=== PATIENT | male | born 1985 | race Caucasian/White ===

== ENCOUNTER 2022-05-30 11:37 | Emergency (ER) | payer MEDICAID ==
[2022-05-30] MEDS ORDERED: traMADol 50 MG Tab PO STA (12:00)
== END 2022-05-30 13:36 | disposition home or self-care (01) ==
LOC: FB.ED 11:37
DX: S20.212A Contusion of left front wall of thorax, initial encounter (principal); W01.0XXA Fall on same level from slipping, tripping and stumbling without subsequent striking against object, initial encounter
CPT/HCPCS: 71101; 99283; A9270

== ENCOUNTER 2024-05-21 13:14 | Emergency (ER) | payer BC ==
[2024-05-21] MEDS ORDERED: Cephalexin 500 MG Cap PO ONE (13:15)
[2024-05-21] MEDS: Ketorolac 30 MG/ML SDV IM ONE (14:21)
[2024-05-21] MEDS: cefTRIAXone 1 GM Vial IM ONE (14:22)
[2024-05-21] MEDS: Lidocaine 2% Viscous Solution 15 ML UD PO ONE (14:22)
== END 2024-05-21 15:30 | disposition home or self-care (01) ==
LOC: FB.ED 13:14
DX: S02.5XXB Fracture of tooth (traumatic), initial encounter for open fracture (principal); K04.7 Periapical abscess without sinus; F17.210 Nicotine dependence, cigarettes, uncomplicated; Z79.899 Other long term (current) drug therapy; X58.XXXA Exposure to other specified factors, initial encounter
CPT/HCPCS: 96372; 99282; A9270; J0696; J1885; 99283

== ENCOUNTER 2024-12-30 10:49 | Emergency (ER) | payer BC ==
[2024-12-30] MEDS: Ketorolac 30 MG/ML SDV IVPUSH ONE (11:07)
[2024-12-30 11:09] LABS: BASOPHILS ABSOLUTE AUTO 0.1 x10-3/uL (0.0-0.3); BASOPHILS PERCENT AUTO 0.7 % (0.3-3.8); EOSINOPHILS ABSOLUTE AUTO 0.2 x10-3/uL (0.0-0.6); EOSINOPHILS PERCENT AUTO 2.0 % (0.1-6.8); LYMPHOCYTES ABSOLUTE AUTO 3.1 x10-3/uL (0.5-4.5); LYMPHOCYTES PERCENT AUTO 34.3 % (15.8-45.3); MEAN PLATELET VOLUME 7.0 fL (6.7-11.0); MONOCYTES ABSOLUTE AUTO 0.7 x10-3/uL (0.0-1.2); MONOCYTES PERCENT AUTO 7.3 % (5.5-15.2); NEUTROPHILS ABSOLUTE AUTO 5.1 x10-3/uL (1.7-6.9); NEUTROPHILS PERCENT AUTO 55.7 % (40.3-71.8); PLATELET COUNT,PLT 435 x10(3)uL (117-477); RED BLOOD CELL COUNT 5.27 x10(6)uL (3.90-5.90); RED CELL DISTRIBUTION WIDTH 14.1 % (12.4-15.0); WHITE BLOOD CELL COUNT,WBC 9.1 x10-3/uL (3.2-10.1)
[2024-12-30] MEDS: Sodium Chloride 0.9% 10 ML Syringe FLUSH PRN (11:10)
[2024-12-30 11:17] LABS: BLOOD UREA NITROGEN,BUN 16 mg/dL (7-18); CARBON DIOXIDE,CO2 25 mmol/L (21-32); CHLORIDE,CL 104 mmol/L (100-110); CREATININE 1.1 mg/dL (0.70-1.30); ESTIMATED GFR 88 mL/min (>60); GLUCOSE RANDOM 109 mg/dL (80-116); POTASSIUM,K 4.1 mmol/L (3.5-5.3); SODIUM,NA 140 mmol/L (135-145)
[2024-12-30 11:23] LABS: A/G RATIO 1.1; ALANINE AMINOTRANSFERASE,ALT 31 U/L (12-36); ASPARTATE AMNIOTRANSFERASE,AST 20 IU/L (5-25); BILIRUBIN TOTAL 0.5 mg/dL (0.1-1.3); PROTEIN TOTAL,TP 7.7 g/dL (6.0-8.0)
[2024-12-30] MEDS: Iopamidol 755 Mg/ML 100 ML Bottle IV SCH (11:28)
[2024-12-30] MEDS: Ondansetron 4 MG/2 ML SDV IVPUSH ONE (11:39)
== END 2024-12-30 12:30 | disposition home or self-care (01) ==
LOC: FB.ED 10:49
DX: R07.89 Other chest pain (principal); Z79.899 Other long term (current) drug therapy
CPT/HCPCS: 71275; 80053; 84484; 85025; 93005; 96374; 96375; 99285; J1885; J2270; J2405; Q9967